=== PATIENT | male | born 1940 | race Caucasian/White ===

== ENCOUNTER 2018-02-19 14:53 | Emergency (ER) | payer MEDICARE ==
[~2018-02-19] VITALS: Ht 180.3 cm; Wt 79.5 kg
[2018-02-19 14:56] VITALS: TEMP 98.2
[2018-02-19 15:59] LABS: BASO % 0.3 % (0.0-2.0); EOS # 0.1 (0.0-0.7); EOS % 3.1 % (0-4.0); GRAN # 1.6 (1.4-6.5); GRAN % 56.5 % (42.2-75.2); LYMPH # 0.9 (1.2-3.4); LYMPH % 30.4 % (20.0-51.0); MEAN CELL VOLUME 88 fl (80.0-100.0); MEAN CORPUSCULAR HGB CONC 35 g/dl (33.0-37.0); MEAN PLATELET VOLUME 9.9 fl (7.4-10.4); MONO # 0.2 (0.1-0.6); MONO % 8.3 % (1.7-9.3); PLATELET COUNT 116 K/mm3 (130-400); RED BLOOD COUNT 3.64 M/mm3 (4.20-5.60); REDCELL DISTRIBUTION WIDTH-CV 15.8 % (11.5-14.5)
[2018-02-19 16:00] LABS: HEMATOCRIT 31.9 % (42.0-52.0); HEMOGLOBIN 11.1 g/dl (13.5-18.0); MEAN CORPUSCULAR HEMOGLOBIN 30 pg (27.0-31.0)
[2018-02-19] MEDS ORDERED: ARMOUR THYROID90 MG PO (16:22)
[2018-02-19 17:00] VITALS: BP 126/76; PULSE 64
== END 2018-02-19 17:10 | disposition home or self-care (01) ==
LOC: COL.ER 14:53
PROVIDERS: Family Medicine
DX: R10.11 Right upper quadrant pain (principal)